=== PATIENT | female | born 1990 | race Caucasian/White ===

== ENCOUNTER 2017-04-24 14:56 | Emergency (ER) | payer MEDICAID ==
[~2017-04-24] VITALS: Ht 170.2 cm; Wt 51.7 kg
[~2017-04-24 14:56] MED LIST: ATIVAN0.5 MG PO; BROMFED DM COU118 ML PO; FLONASE 50 MCG16 GM; MEDROL 4MG. DOSE4 MG PO; NAPROSYN500 M1 PO; VISTARIL50 MG PO; ZITHROMAX Z PA250 MG PO
[2017-04-24 15:41] VITALS: BP 113/75
--- OUTSIDE RECORDS SUMMARY | 2017-04-27 16:37 | External Medical Summary Rpt ---
Author Author , JUSTINE Pruitt JUSTINE Address Unknown Phone [email or web address] Team Providers Care Automobile Body Repair Chief Name Role Phone [facility] Unavailable Unavailable & INTER, [facility] CAMP ALL, CAMP ALL Unavailable Unavailable LINTON JOSE LUIS, LINTON JOSE LUIS Unavailable Unavailable DEPA RAY, DEPA RAY Unavailable Unavailable DEPA RAY, DEPA RAY Unavailable Unavailable JR NAHEED SALMON, Unavailable Unavailable JR NAHEED SALMON BHARATH, CONI Unavailable Unavailable BHARATH [facility] Unavailable Unavailable HOSPITA, [facility] Unavailable Unavailable INC, [facility] XIMENA GREER Unavailable Unavailable XIMENA FLORES Unavailable Unavailable VERONICA [facility], Unavailable Unavailable [facility] Unavailable Unavailable IMAGING [facility], [facility] BARFIELD PAULINA, BARFIELD Unavailable Unavailable PAULINA [facility] Un[facility], [facility] O'OSWALDOBENNY MARIE O'OSWALDO Unavailable Unavailable FRANK Ian'OSWALDOBENNY MARIE O'OSWALDO Unavailable Unavailable FRANK [facility] Unavailable [facility] JOSE LUIS LINTON MD Unavailable Unavailable CONSULTING SERV, JOSE LUIS LINTON MD CONSULTING SERV [facility], Unavailable Unavailable PLL[facility], [facility], Unavailable Unavailable [facility] RENUSCH VERONICA, RENUSCH Unavailable Unavailable VERONICA [facility] Unavailable Unavailable [place], [facility] Unavailable Unavailable CENTER, [facility] SOKAN BAB, SOKAN BAB Unavailable Unavailable SOKAN BAB, SOKAN BAB Unavailable Unavailable LUKE RYA, LUKE Unavailable Unavailable RYA LUKE RYA, LUKE Unavailable Unavailable RYA LAZO RAY, LAZO Unavailable Unavailable RAY JOSH IQBAL, Unavailable Unavailable JOSH IQBAL Purpose Continuity of Care Document - 07-03-2013 through 2016 Problems Code Diagnosis DOS Provider Status R0602 SHORTNESS 03-26-2017 [facility] R079 CHEST PAIN 03-26-2017 [facility] [id number] MIGRAINE 03-23-2017 [facility] W/O AURA [facility] INTRACT W/O INC STAT MIGRAINOSUS Z720 TOBACCO USE 03-23-2017 [facility] M5412 RADICULOPAT 08-04-2016 [facility] HY CERVICAL [facility] REGION INC R203 HYPERESTHES 08-04-2016 [facility] IA [facility] [id number] UNS INJURY 08-04-2016 [facility] LEG INITIAL PLLC ENCOUNTER J40 BRONCHITIS 07-26-2016 [facility] NOT [facility] SPECIFIED INC ACUTE OR CHRONIC R42 DIZZINESS 07-26-2016 [facility] AND [facility] GIDDINESS INC M2550 PAIN IN 05-10-2016 [facility] UNSPECIFIED PHYSICIANS JOINT GROUP M542 CERVICALGIA 05-10-2016 [facility] M546 PAIN IN 05-10-2016 [facility] M549 DORSALGIA 05-10-2016 [facility] UNSPECIFIED PHYSICIANS GROUP R5383 OTHER 05-10-2016 [facility] FATIGUE PHYSICIANS GROUP J209 ACUTE 12-31-2015 [facility] UNSPECIF[facility] & INTER M545 LOW BACK 12-31-2015 [facility] PAIN [facility] & INTER Z3049 ENCOUNTER 12-03-2015 [facility] E OTHER CONTRACEPTI VES A599 TRICHOMONIA 07-20-2015 [facility] S[facility] UNSPECIFIED FOUNDATION N898 OTHER 07-20-2015 [facility] SPECIFIED SERV NONINFLAMMA FOUNDATION TORY DISORDERS VAGINA Y99113 ATYP SQ 07-20-2015 [facility] CELLS UNDET LLC SIGNIFICANC E CYTOL SMER CERV H24993 ENCOUNTER 07-20-2015 [facility] 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 GENERAL RTN W/ABNORMAL FIND I63398 ENCOUNTER 07-20-2015 [facility] EXAM SERV GENERAL RTN FOUNDATION W/O ABNORMAL FIND Z113 ENCOUNTER 07-20-2015 [facility] SCREEN LLC INFECTIONS SEXL MODE TRANSMISSN Z3202 ENCOUNTER 07-20-2015 [facility] TEST RESULT NEGATIVE 09190 UNSPECIFIED 05-19-2015 SOK[facility] VAGINITIS AND VULVOVAGINI TIS 6235 LEUKORRHEA 05-19-2015 [facility] NOT SPECIFIED INFECTIVE 4240 MITRAL 04-21-2015 JOSE LUIS WILBURN MD DISORDERS CONSULTING SERV 68713 OTHER 04-21-2015 [facility] DISEASES OF MEDICAL LUNG NOT IMAGING ASS ELSEWHERE CLASSIFIED 87000 SHORTNESS 04-21-2015 JOSE LUIS LINTON OF BREATH CONSULTING SERV 09355 CHEST PAIN 04-21-2015 [facility]NSPECIFIED [facility]ICAL [facility]ING [facility] 27417 PRECORDIAL 04-21-2015 JOSE LUIS LINTON PAIN CONSULTING SERV 650 NORMAL 02-24-2014 DEPA RAY DELIVERY 90433 RHESUS 02-24-2014 XIMENA MARTIN ISOIMMUNIZA TION AFFECT MGMT MOTH DELIV 05332 OTH 02-24-2014 XIMENA MARTIN UMBILICAL CORD COMPS DURING L&D DELIVERED 27175 FIRST-DEGRE 02-24-2014 [facility] PERINEAL [facility] WITH DELIVERY V220 SUPERVISION 02-24-2014 XIMENA MARTIN OF NORMAL FIRST V270 OUTCOME OF 02-24-2014 [facility] DELIVERY [facility] LIVEBORN V221 SUPERVISION 02-23-2014 XIMENA MARTIN OF OTHER NORMAL V072 NEED FOR 12-03-2013 [place] [facility] IMMUNOTHERA PY V2881 ENCOUNTER 10-01-2013 O'OSWALDO FRANK FOR ANATOMIC SURVEY 86707 ABDOMINAL 09-15-2013 XIMENA MARTIN PAIN, UNSPECIFIED SITE 591 HYDRONEPHRO 09-14-2013 LAZO RAY SIS 83203 UNSPECIFIED 09-14-2013 [facility] DISEASE 42301 OTHER 09-14-2013 LUKE RYA SPECIFED COMPLICATIO N ANTEPARTUM 52366 ABDOMINAL 09-14-2013 LUKE RYA PAIN RIGHT LOWER QUADRANT V2689 OTHER 07-03-2013 [facility] V7242 07-03-2013 [facility] OR TEST [facility] POSITIVE C[facility] RESULT Medications Na ND Rx Da Fi Fi Am Da Di Ph RX Ph St me C No te ll ll ou ys ag ar # ys at rm s nt no ma ic us Or Da si cy ia de te s n re d HY 00 06 07 [address] 18 -3 -2 .0 00 TE ti OX 50 0- 8- 00 01 ve YZ 61 20 20 19 AI IN 50 17 17 01 D E 1 45 PH PA AR M MA 50 CY MG #3 93 CA 8 P LO 00 05 06 60 30 00 RI Ac RA 59 -2 -2 .0 00 TE ti ZE 10 6- 3- 00 01 ve PA 24 20 20 18 AI M 00 17 17 56 D 0. 5 70 PH 5 AR MG MA CY TA BL #3 ET 93 8 LO 00 03 04 60 30 00 RI Ac RA 59 -1 -1 .0 00 TE ti ZE 10 6- 4- 00 01 ve PA 24 20 20 16 AI M 00 17 17 59 D 0. 5 07 PH 5 AR MG MA CY TA BL #3 ET 93 8 PE 45 02 03 60 1 00 RI Ac RM 80 -1 -1 .0 00 TE ti ET 20 2- 0- 00 01 ve HR 26 20 20 17 AI IN 93 17 17 07 D 7 80 PH 5% AR MA CR CY EA M #3 93 8 LO 00 01 02 60 30 00 RI Ac RA 59 -0 -0 .0 00 TE ti ZE 10 9- 3- 00 01 ve PA 24 20 20 16 AI M 00 17 17 59 D 0. 5 07 PH 5 AR MG MA CY TA BL #3 ET 93 8 HY 00 12 01 [address] 40 -1 -0 .0 00 TE ti OC 60 3- 9- 00 01 ve OD 12 20 20 16 AI ON 40 16 17 23 D -A 1 52 PH CE AR TA MA [place] CY NO PH #3 93 7. 8 5- 32 5 IB 53 12 01 30 7 00 RI Ac UP 74 -1 -0 .0 00 TE ti RO 60 3- 9- 00 01 ve FE 46 20 20 16 AI N 50 16 17 23 D 60 1 49 PH 0 AR MG MA CY TA BL #3 ET 93 8 Procedures Procedure DOS Code Location Performer Comment RADIOLOGI 82324 [facility] C EXAM [facility] CHEST 2 INC INC VIEWS FRONTAL&L ATERAL THERAPEUT 31238 [facility] IC 7 [facility] PROPHYLAC INC INC TIC/DX INJECTION SUBQ/IM THERAPEUT 88553 [facility] T[facility] IC 6 [facility] PROPHYLAC INC INC TIC/DX INJECTION SUBQ/IM THERAPEUT 71615 [facility] T[facility] IC 6 [facility] PROPHYLAC INC INC TIC/DX INJECTION SUBQ/IM CYANOCOBA 39106 [facility] TSE KEITH 6 [facility] VITAMIN INC INC B-12 RADEX 91169 [facility] SPINE 6 [facility] THORACIC INC INC 2 VIEWS SEDIMENTA 78050 [facility] TION RATE 6 [facility] RBC INC INC NON-AUTOM ATED ANTINUCLE 55345 [facility]SE AR 6 [facility] [place] [address] [facility] TSE THYROXINE 6 [facility] [place] [address] [facility] BLOOD/URI 6 [facility] C ACID INC INC RADEX 27650 [facility] SPINE 6 [facility] CERVICAL INC INC 4 OR 5 VIEWS RHEUMATOI 15373 [facility] D FACTOR 6 [facility] QUANTITAT INC INC MI HEMOGLOBI 32182 [facility] TSE N 6 [facility] GLYCOSYLA INC INC AMADA A1C BLOOD 72418 [facility] COUNT 6 [facility] COMPLETE INC INC AUTO&AUTO DIFRNTL WBC COMPREHEN 04653 [facility] SIVE 6 [facility] METABOLIC INC INC PANEL COLLECTIO 16819 [facility] N VENOUS 6 [facility] [place] [address] [facility] FOLIC 6 [facility] [place] [address] [facility] T[facility] THYROID 6 [facility] STIMULATI INC INC NG HORMONE TSH INSJ 33983 SHUN BUEON NON-BIODE 6 MEDICAL [facility] GRADABLE SERV DRUG FOUNDATIO DELIVERY N IMPLANT ETONOGEST J7307 SHUN BUENO REL 6 MEDICAL [facility] CNTRACPT SERV IMPL SYS FOUNDATIO INCL IMPL N & SPL SMR PRIM 93431 SHUN BUENO SRC WET 5 MEDICAL VERONICA MOUNT SERV NFCT AGT FOUNDATIO N IADNA 47201 [facility] CHLAMYDIA 5 LLC LLC TRACHOMAT IS AMPLIFIED PROBE TQ IADNA 22872 [facility] HUMAN 5 LLC LLC PAPILLOMA VIRUS HIGH-RISK TYPES URINE 31324 [place] BUENO 5 MEDICAL VERONICA TEST SERV VISUAL FOUNDATIO COLOR N CMPRSN METHS CYTP 60632 [facility], CERVICAL/ 5 [facility] VAGINAL REQ INTERP PHYSICIAN CYTP C/V 17115 [facility], AUTO THIN 5 [facility] LYR PREPJ SCR MNL RESCR PHYS IADNA 45181 [facility] NEISSERIA 5 [facility] GONORRHOE AE AMPLIFIED PROBE TQ COLLECTIO 79774 [facility] TSE N VENOUS 5 [facility] BLOOD INC INC VENIPUNCT URE RADIOLOGI 78197 [facility] [place] [facility] ALL C EXAM 5 MEDICAL CHEST 2 IMAGING VIEWS ASS FRONTAL&L ATERAL C-REACTIV 19561 [facility] TSE E PROTEIN [address] [facility] INC INC ECHO 08432 JOSE LUIS LINTON LINTON JOSE LUIS TTHRC R-T 5 2D CONSULTIN W/WOM-MOD G SERV E COMPL SPEC&COLR D GONADOTRO 59586 [facility] TSE PIN [address] [facility] CHORIONIC INC INC QUALITATI VE SEDIMENTA 13943 [facility] TSE TION RATE [facility] RBC INC INC NON-AUTOM ATED ECG 67294 JOSE LUIS LINTON LINTON JOSE LUIS ROUTINE 5 ECG CONSULTIN W/LEAST G SERV 12 LDS W/I&R RADIOLOGI 05215 [place] CAMP ALL C EXAM 5 MEDICAL CHEST 2 IMAGING VIEWS ASS FRONTAL&L ATERAL VAGINAL 04450 XIMENA BUENO DELIVERY 4 VERONICA VERONICA ONLY W/POSTPAR PRAVEEN CARE NEURAXIAL 43952 DEPA RAY DEPA RAY LABOR 4 ANALG/ANE S PLND VAGINAL DELIVERY OTHER 7359 [facility] MANUALLY 4 N N ASSISTED [facility] DELIVERY HOSPITA HOSPITA MEDICAL 734 [facility] INDUCTION 4 N N OF LABOR [facility] RE[facility] 7569 [facility] OTHER 4 N N CURRENT [facility] LACERAT[facility] N INDUCTION 7301 [facility] LABOR 4 N N [facility] RUPTURE HOSPITA HOSPITA MEMBRANES DRUG SCR G0434 [facility] NOT 4 DIAGNOSTI DIAGNOSTI CHROMATOG CS CS RAPHIC; ANY NUMBER PT ENC CUL 38933 [facility] PRSMPTV 4 DIAGNOSTI DIAGNOSTI PTHGNC CS CS ORGANISM SCRN W/COLONY ESTIMJ CUL 78695 [facility] PRSMPTV 4 DIAGNOSTI DIAGNOSTI PTHGNC CS CS ORGANISM SCRN W/COLONY ESTIMJ THERAPEUT 04858 XIMENA BUENO IC 4 VERONICA VERONICA PROPHYLAC TIC/DX INJECTION SUBQ/IM INJECTION J2790 [place] RHO D IG 4 MEDICAL MEDICAL HUMAN SERV SERV FULL DOSE FOUNDATIO FOUNDATIO 300 MCG N N GLUCOSE 68160 [facility] POST 4 DIAGNOSTI DIAGNOSTI GLUCOSE CS CS DOSE COLLECTIO 98731 [facility] N VENOUS 4 DIAGNOSTI DIAGNOSTI BLOOD CS CS VENIPUNCT URE URNLS DIP 98592 XIMENA BUENO 4 VERONICA VERONICA STICK/TAB LET RGNT AUTO W/O MICROSCOP Y US PREG 89716 O'OSWALDO O'OSWALDO UTERUS 4 FRANK FRANK AFTER 1ST TRIMEST GESTATION URNLS DIP 69855 XIMENA BUENO 3 VERONICA VERONICA STICK/TAB LET [place] [address] [facility] INFUSION 3 N N HYDRATION [facility] INITIAL HOSPITA HOSPITA 31 MIN-[address] [place] [address] [facility] INFUSION 3 N N HYDRATION [facility] EACH [place] [address] [facility] ABDOMINAL 3 N N REAL COMMUNITY COMMUNITY TIME HOSPITA HOSPITA W/IMAGE LIMITED COMPREHEN 63512 [facility] SIVE 3 N N METABOLIC [facility] PANEL HOSPITA HOSPITA COLLECTIO 43184 [facility] N VENOUS 3 N N BLOOD [facility] VENIPUNCT HOSPITA HOSPITA URE URNLS DIP 88345 [facility] 3 N N STICK/TAB [facility] LET HOSPITA HOSPITA REAGENT AUTO MICROSCOP Y BLOOD 12319 [facility] COUNT 3 N N COMPLETE [facility] AUTO&AUTO HOSPITA HOSPITA DIFRNTL WBC INFUSION J7030 [facility] NORMAL 3 N N SALINE [facility] SOLUTION HOSPITA HOSPITA [address] [place] [address] [facility] LIPASE 3 N N [facility] HOSPITA HOSPITA GONADOTRO 00374 [facility] PIN 3 DIAGNOSTI DIAGNOSTI CHORIONIC CS CS QUANTITAT MI INHIBIN A 22848 [facility] 3 [place] [address] [facility] ESTRIOL 3 DIAGNOSTI DIAGNOSTI CS CS ALPHA-FET 57548 [facility] OPROTEIN 3 DIAGNOSTI DIAGNOSTI SERUM CS CS COLLECTIO 31194 [facility] N VENOUS 3 DIAGNOSTI DIAGNOSTI BLOOD CS CS VENIPUNCT URE URNLS DIP 48581 XIMENA BUENO 3 VERONICA VERONICA STICK/TAB LET RGNT AUTO W/O MICROSCOP Y URNLS DIP 30262 XIMENA BUENO 3 VERONICA VERONICA STICK/TAB LET RGNT AUTO W/O MICROSCOP Y URNLS DIP 89468 XIMENA BUENO 3 VERONICA VERONICA STICK/TAB LET RGNT AUTO W/O MICROSCOP Y US PREG 23022 XIMENA BUENO UTERUS 3 VERONICA MARTIN REAL TIME W/IMAGE DCMTN TRANSVAG URINE 50234 [facility] [address] [place] [address] VISUAL CENTER CENTER COLOR CMPRSN METHS Encounters Encounter Start End Date Code Location Performer Type Date [facility]OSPITAL [facility] T [facility] OUTPATI[facility] T OFFICE 34989 [facility] T VISIT 5 INC MINUTES [facility] 6 6 [facility] OUTPATIEN INC T EMERGENCY 60692 [facility] CONTRERAS 6 6 PHYSICIAN SALVADOR VAZ T VISIT MODERATE SEVERITY HOSPITAL [facility] - 6 6 [facility] OUTPATIEN INC T OFFICE 55111 [facility] CONI OUTPATIEN 6 6 PHYSICIAN BHARATH T NEW 20 S GROUP MINUTES HOSPITAL [facility] - 6 6 [facility] OUTPATIEN INC T OFFICE 74256 JAY JAY BARFIELD OUTPATIEN 6 6 PAULINA T NEW 30 PEDIATRIC MINUTES S & INTER OFFICE 15679 SHUN BUENO OUTPATIEN 6 6 MEDICAL VERONICA T VISIT SERV 10 FOUNDATIO MINUTES N PERIODIC 38336 SHUN BUENO PREVENTIV 5 5 MEDICAL VERONICA E MED EST SERV PATIENT FOUNDATIO 18-39 YRS N EMERGENCY 12339 SOKAN BAB SOKAN BAB 5 5 DEPARTMEN T VISIT MODERATE SEVERITY HOSPITAL [facility] - 5 5 [facility] OUTPATIEN INC T OFFICE 95460 JOSE LUIS LINTON LINTON JOSE LUIS OUTPATIEN 5 5 MD T 45 CONSULTIN MINUTES G SERV EMERGENCY 54330 VIKY SALMON, 5 5 JR NAHEED FARFAN DEPARTMEN T VISIT HIGH/URGE NT SEVERITY HOSPITAL [facility] 4 4 N INPATIENT COMMUNITY HOSPITA OFFICE 20066 XIMENA BUENO OUTPATIEN 4 4 VERONICA VERONICA T VISIT 15 MINUTES OFFICE 30609 XIMENA BUENO OUTPATIEN 4 4 VERONICA VERONICA T VISIT 15 MINUTES OFFICE 31486 XIMENA BUENO OUTPATIEN 4 4 VERONICA VERONICA T VISIT 15 MINUTES OFFICE 26591 JOSH JOSH OUTPATIEN 4 4 DIRECTIONAL SURVEY DRAFTER DIRECTIONAL SURVEY DRAFTER T VISIT 15 MINUTES OFFICE 13019 XIMENA BUENO OUTPATIEN 4 4 VERONICA VERONICA T VISIT 15 MINUTES OFFICE 12400 XIMENA BUENO OUTPATIEN 4 4 VERONICA VERONICA T VISIT 15 MINUTES OFFICE 77597 XIMENA BUENO OUTPATIEN 4 4 VERONICA VERONICA T VISIT 15 MINUTES OFFICE 30416 XIMENA MCGUIRENES OUTPATIEN 4 4 VERONICA VERONICA T VISIT 15 MINUTES OFFICE 41951 XIMENA BUENO OUTPATIEN 4 4 VERONICA VERONICA T VISIT 15 MINUTES OFFICE 53438 XIMENA BUENO OUTPATIEN 4 4 VERONICA VERONICA T VISIT 15 MINUTES OFFICE 98531 XIMENA BUENO OUTPATIEN 4 4 VERONICA VERONICA T VISIT 15 MINUTES OFFICE 43802 XIMENA BUENO OUTPATIEN 4 4 VERONICA VERONICA T VISIT 15 MINUTES OFFICE 28308 XIMENA BUENO OUTPATIEN 3 3 VERONICA VERONICA T VISIT [address] [facility] - 3 3 N OUTPATIEN COMMUNITY T HOSPITA EMERGENCY 72696 [facility] HIGH/URGE NT SEVERITY EMERGENCY 03472 [facility] DEPT 3 3 RYA RYA VISIT HIGH SEVERITY& THREAT FUN OFFICE 26682 XIMENA BUENO OUTPATIEN 3 3 VERONICA VERONICA T VISIT 15 MINUTES OFFICE 11537 XIMENA BUENO OUTPATIEN 3 3 VERONICA VERONICA T VISIT 15 MINUTES OFFICE 90198 XIMENA BUENO OUTPATIEN 3 3 VERONICA VERONICA T NEW 30 MINUTES OFFICE 49714 [facility] OUTPATIEN [address]
--- OUTSIDE RECORDS SUMMARY | 2017-04-27 16:37 | External Medical Summary Rpt ---
Author Author , JUSTINE Pruitt JUSTINE Address Unknown Phone [email or web address] Care Team Providers Care Wellness Trainer Name Role Phone [facility] Unavailable Unavailable & INTER, [facility], CAMP ALL Unavailable Unavailable LINTON JOSE LUIS, LINTON JOSE LUIS Unavailable Unavailable DEPA RAY, DEPA RAY Unavailable Unavailable DEPA RAY, DEPA RAY Unavailable Unavailable JR NAHEED SALMON, Unavailable Unavailable JR NAHEED SALMON BHARATH, CONI Unavailable Unavailable BHARATH [facility] Unavailable Unavailable HOSPITA, [facility] Unavailable Unavailable INC, [facility] XIMENA GREER Unavailable Unavailable XIMENA FLORES Unavailable Unavailable VERONICA [facility], Unavailable Unavailable [facility] Unavailable Unavailable [facility], [facility] BARFIELD PAULINA, BARFIELD Unavailable [...] DIAGNOSTICS RENUSCH VERONICA, RENUSCH Unavailable Unavailable VERONICA [facility] Unavailable Unavailable [place], [facility] Unavailable Unavailable [facility] SOKAN BAB, SOKAN BAB Unavailable Unavailable SOKAN [...] PAIN 03-26-2017 [facility]NSPECIFIED [facility] [id number] MIGRAINE 03-23-2017 [facility] W/O AURA [facility] INTRACT W/O INC STAT MIGRAINOSUS Z720 TOBACCO USE 03-23-2017 [facility] M5412 RADICULOPAT 08-04-2016 [facility] HY CERVICAL [facility] REGION INC R203 HYPERESTHES 08-04-2016 [facility] IA [facility] INC [id number] UNS INJURY 08-04-2016 [facility] RT [facility]OWER [facility], LEG INITIAL PLLC ENCOUNTER J40 BRONCHITIS 07-26-2016 [facility] NOT [facility] SPECIFIED INC ACUTE OR CHRONIC R42 DIZZINESS 07-26-2016 [facility] AND [facility] GIDDINESS INC M2550 PAIN IN 05-10-2016 [facility] UNSPECIFIED PHYSICIANS JOINT GROUP M542 CERVICALGIA 05-10-2016 [facility] M546 PAIN IN 05-10-2016 [facility] M549 DORSALGIA 05-10-2016 [facility] UNSPECIFIED PHYSICIANS GROUP R5383 OTHER 05-10-2016 [facility] FATIGUE PHYSICIANS GROUP J209 ACUTE 12-31-2015 [facility] UNSPECIFIED & INTER M545 LOW BACK 12-31-2015 [facility] PAIN [facility]ICS & INTER Z3049 ENCOUNTER 12-03-2015 [place] [facility] SUR[facility] E OTHER CONTRACEPTI VES A599 TRICHOMONIA 07-20-2015 [place] [facility] S[facility] UNSPECIFIED [facility]ATION N898 OTHER 07-20-2015 [place] [facility] SPECIF[place] SERV NONINFLAMMA [facility]OUNDATION TORY DISORDERS VAGINA W94776 ATYP SQ 07-20-2015 [facility] CELLS UNDET LLC SIGNIFICANC E CYTOL SMER CERV C85830 ENCOUNTER 07-20-2015 [facility], ASSISTANT ADMINISTRATOR EXAM LLC GENERAL RTN W/ABNORMAL FIND A07459 ENCOUNTER 07-20-2015 [place] [facility] ASSISTANT ADMINISTRATOR EXAM SERV GENERAL RTN FOUNDATION W/O ABNORMAL FIND Z113 ENCOUNTER 07-20-2015 [facility], SCREEN LLC INFECTIONS SEXL MODE TRANSMISSN Z3202 ENCOUNTER 07-20-2015 [place] [facility] TEST RESULT NEGATIVE 21973 UNSPECIFIED 05-19-2015 SO[facility] VAGINITIS AND VULVOVAGINI TIS 6235 LEUKORRHEA 05-19-2015 [facility] NOT SPECIFIED INFECTIVE 4240 MITRAL 04-21-2015 JOSE LUIS WILBURN MD DISORDERS CONSULTING SERV 42208 OTHER 04-21-2015 [facility] DISEASES OF MEDICAL LUNG NOT IMAGING ASS ELSEWHERE CLASSIFIED 81490 SHORTNESS 04-21-2015 JOSE LUIS LINTON OF BREATH CONSULTING SERV 00737 CHEST PAIN 04-21-2015 [facility] UNSPECIFIED [facility]ING [facility] 18023 PRECORDIAL 04-21-2015 JOSE LUIS LINTON PAIN CONSULTING SERV 650 NORMAL 02-24-2014 DEPA RAY DELIVERY 32474 RHESUS 02-24-2014 XIMENA MARTIN ISOIMMUNIZA TION AFFECT MGMT MOTH DELIV 23136 OTH 02-24-2014 X[facility] MARTIN UMBILICAL CORD COMPS DURING L&D DELIVERED 29805 FIRST-DEGRE 02-24-2014 [facility] LAC[facility]ATION HOSPITA WITH DELIVERY V220 SUPERVISION 02-24-2014 XIMENA MARTIN OF NORMAL FIRST V270 OUTCOME OF 02-24-2014 [facility]IVERY [facility] SINGLE HOSPITA LIVEBORN V221 SUPERVISION 02-23-2014 XIMENA MARTIN OF OTHER NORMAL V072 NEED FOR 12-03-2013 [place] [facility] PROPHYLACTI SERV C [facility] IMMUNOTHERA PY V2881 ENCOUNTER 10-01-2013 O'OSWALDO FRANK FOR ANATOMIC SURVEY 65198 ABDOMINAL 09-15-2013 XIMENA MARTIN PAIN, UNSPECIFIED SITE 591 HYDRONEPHRO 09-14-2013 LAZO RAY SIS 72693 UNSPECIFIED 09-14-2013 [facility]TE[facility] RENAL HOSPITA DISEASE 60295 OTHER 09-14-2013 LUKE RYA SPECIFED COMPLICATIO N ANTEPARTUM 90645 ABDOMINAL 09-14-2013 LUKE RYA PAIN RIGHT LOWER QUADRANT V2689 OTHER 07-03-2013 [facility] V7242 07-03-2013 [facility] OR TEST [facility] POS[facility]IVE [facility] RESULT Medications Na ND Rx [...] 1 52 PH CE AR TA MA WV CY NO PH #3 [phone] 7. 8 [...] Procedure DOS Code Location Performer Comment RADIOLOGI 11337 [facility] C EXAM 7 [facility] CHEST 2 INC INC VIEWS FRONTAL&L ATERAL THERAPEUT 94212 [facility] IC 7 [facility] PROPHYLAC INC INC TIC/DX INJECTION SUBQ/IM THERAPEUT 03558 [facility] T[facility] IC 6 [facility] PROPHYLAC INC INC TIC/DX INJECTION SUBQ/IM THERAPEUT 01839 [facility] T[facility] IC 6 [facility] PROPHYLAC INC INC TIC/DX INJECTION SUBQ/IM CYANOCOBA 01319 [facility] TSE KEITH 6 [facility] VITAMIN INC INC B-12 RADEX 27178 [facility] SPINE 6 [facility] THORACIC INC INC 2 VIEWS SEDIMENTA 41512 [facility] TION RATE 6 [facility] RBC INC INC NON-AUTOM ATED ANTINUCLE 77684 [facility] AR 6 [facility] [place] [address] [facility] TSE THYROXINE 6 [facility] [place] [address] [facility] BLOOD/URI 6 [facility] C ACID INC INC RADEX 11434 [facility] T[facility] SPINE 6 [facility] CERVICAL INC INC 4 OR 5 VIEWS RHEUMATOI 15762 [facility] D FACTOR 6 [facility] QUANTITAT INC INC MI HEMOGLOBI 13044 [facility] TSE N 6 [facility] GLYCOSYLA INC INC AMADA A1C BLOOD 16690 [facility] COUNT 6 [facility] COMPLETE INC INC AUTO&AUTO DIFRNTL WBC COMPREHEN 17146 [facility] SIVE 6 [facility] METABOLIC INC INC PANEL COLLECTIO 09067 [facility] N VENOUS 6 [facility] [place] [address] [facility] TSE FOLIC 6 [facility] [place] [address] [facility] THYROID 6 [facility] STIMULATI INC INC NG HORMONE TSH INSJ 28474 SHUN BUENO NON-BIODE 6 MEDICAL VERONICA GRADABLE SERV DRUG FOUNDATIO DELIVERY N IMPLANT ETONOGEST J7307 SHUN BUENO REL 6 MEDICAL VERONICA CNTRACPT SERV IMPL SYS FOUNDATIO INCL IMPL N & SPL SMR PRIM 79864 SHUN BUENO SRC WET 5 MEDICAL VERONICA MOUNT SERV NFCT AGT FOUNDATIO N IADNA 95375 [facility] CHLAMYD[facility] LLC TRACHOMAT IS AMPLIFIED PROBE TQ IADNA 42649 [facility] HUMAN [facility] LLC PAPILLOMA VIRUS HIGH-RISK TYPES URINE 02423 [place] BUENO 5 MEDICAL VERONICA TEST SERV VISUAL FOUNDATIO COLOR N CMPRSN METHS CYTP 24346 [facility], CERVICAL/ 5 [facility] VAGINAL REQ INTERP PHYSICIAN CYTP C/V 56582 [facility], AUTO THIN 5 [facility] LYR PREPJ SCR MNL RESCR PHYS IADNA 05207 [facility], [facility], NEISSERIA 5 [facility] GONORRHOE AE AMPLIFIED PROBE TQ COLLECTIO 36568 [facility] TSE N VENOUS 5 [facility] BLOOD INC INC VENIPUNCT URE RADIOLOGI 61460 [facility] EXAM 5 MEDICAL CHEST 2 IMAGING VIEWS ASS FRONTAL&L ATERAL C-REACTIV 55674 [facility] TSE E PROTEIN 5 [facility] HOSP INC INC ECHO 62078 JOSE LUIS LINTON LINTON JOSE LUIS TTHRC R-T 5 2D CONSULTIN W/WOM-MOD G SERV E COMPL SPEC&COLR D GONADOTRO 37862 [facility] TSE PIN 5 [facility] HOSP CHORIONIC INC INC QUALITATI VE SEDIMENTA 82845 [facility] TSE TION RATE 5 [facility] HOS[facility] RBC INC INC NON-AUTOM ATED ECG 88166 JOSE LUIS LINTON LINTON JOSE LUIS ROUTINE 5 ECG CONSULTIN W/LEAST G SERV 12 LDS W/I&R RADIOLOGI 12217 [facility] EXAM 5 MEDICAL CHEST 2 IMAGING VIEWS ASS FRONTAL&L ATERAL VAGINAL 33949 XIMENA BUENO DELIVERY 4 VERONICA VERONICA ONLY W/POSTPAR PRAVEEN CARE NEURAXIAL 01334 DEPA RAY DEPA RAY LABOR 4 ANALG/ANE S PLND VAGINAL DELIVERY OTHER 7359 [facility] MANUALLY 4 N N ASSISTED [facility] DELIVERY HOSPITA HOSPITA MEDICAL 734 [facility] INDUCTION 4 N N OF LABOR [facility] RE[facility] 7569 [facility] OTHER 4 N N CURRENT [facility] HOSPITA LACERATIO N INDUCTION 7301 [facility] LABOR 4 N N [facility] HOSPITA HOSPITA MEMBRANES DRUG SCR G0434 [facility] NOT 4 DIAGNOSTI DIAGNOSTI CHROMATOG CS CS RAPHIC; ANY NUMBER PT ENC CUL 42974 [facility] QUEST PRSMPTV 4 DIAGNOSTI DIAGNOSTI PTHGNC CS CS ORGANISM SCRN W/COLONY ESTIMJ CUL 05347 [facility]ST PRSMPTV 4 DIAGNOSTI DIAGNOSTI PTHGNC CS CS ORGANISM SCRN W/COLONY ESTIMJ THERAPEUT 64059 XIMENA BUENO IC 4 VERONICA VERONICA PROPHYLAC TIC/DX INJECTION SUBQ/IM INJECTION J2790 [place] RHO D IG 4 MEDICAL MEDICAL HUMAN SERV SERV FULL DOSE FOUNDATIO FOUNDATIO 300 MCG N N GLUCOSE 05257 [facility] POST 4 DIAGNOSTI DIAGNOSTI GLUCOSE CS CS DOSE COLLECTIO 19048 [facility]ST N VENOUS 4 DIAGNOSTI DIAGNOSTI BLOOD CS CS VENIPUNCT URE URNLS DIP 86341 XIMENA BUENO 4 VERONICA VERONICA STICK/TAB LET RGNT AUTO W/O MICROSCOP Y US PREG 09987 O'OSWALDO O'OSWALDO UTERUS 4 FRANK FRANK AFTER 1ST TRIMEST GESTATION URNLS DIP 49244 XIMENA BUENO 3 VERONICA VERONICA STICK/TAB LET RG[place] W/[place] [address] [facility] INFUSION 3 N N HYDRATION [facility] INITIAL HOSPITA HOSPITA 31 MIN-[address] [place] [address] [facility] INFUSION 3 N N HYDRATION [facility] EACH [place] [address] [facility] ABDOMINAL 3 N N REAL COMMUNITY COMMUNITY TIME HOSPITA HOSPITA W/IMAGE LIMITED COMPREHEN 02996 [facility] SIVE 3 N N METABOLIC COMM[facility]ITY [facility] PANEL HOSPITA HOSPITA COLLECTIO 32683 [facility] N VENOUS 3 N N BLOOD [facility] VENIPUNCT HOSPITA HOSPITA URE URNLS DIP 95075 [facility] 3 N N STICK/TAB [facility]ITY [facility] LET HOSPITA HOSPITA REAGENT AUTO MICROSCOP Y BLOOD 19510 [facility] COUNT 3 N N COMPLETE [facility] AUTO&AUTO HOSPITA HOSPITA DIFRNTL WBC INFUSION J7030 [facility] NORMAL 3 N N SALINE [facility] SOLUTION HOSPITA HOSPITA [address] [place] [address] [facility] LIPASE 3 N N [facility] HOSPITA HOSPITA GONADOTRO 41678 [facility] PIN 3 DIAGNOSTI DIAGNOSTI CHORIONIC [place] [address] [facility] QUEST 3 [place] [address] [facility] ESTRIOL 3 DIAGNOSTI DIAGNOSTI CS CS ALPHA-FET 21928 [facility] OPROTEIN 3 DIAGNOSTI DIAGNOSTI SERUM CS CS COLLECTIO 95395 [facility] N VENOUS 3 DIAGNOSTI DIAGNOSTI BLOOD CS CS VENIPUNCT URE URNLS DIP 82133 XIMENA BUENO 3 VERONICA VERONICA STICK/TAB LET RGNT AUTO W/O MICROSCOP Y URNLS DIP 14076 XIMENA BUENO 3 VERONICA VERONICA STICK/TAB LET RGNT AUTO W/O MICROSCOP Y URNLS DIP 55809 XIMENA BUENO 3 VERONICA VERONICA STICK/TAB LET RGNT AUTO W/O MICROSCOP Y US PREG 26415 XIMENA BUENO UTERUS 3 VERONICA MARTIN REAL TIME W/IMAGE DCMTN TRANSVAG URINE 04306 [facility] [address] [place] [address] VISUAL CENTER CENTER COLOR CMPRSN METHS Encounters Encounter Start End Date Code Location Performer Type Date HOSPITAL [facility] T [facility] OUTPATIEN INC T OFFICE 27782 [facility] 7 [facility] T VISIT 5 INC MINUTES [facility]OS[facility] - 6 6 [facility] OUTPATIEN INC T EMERGENCY 57421 [facility] CONTRERAS 6 6 PHYSICIAN SALVADOR VAZ T VISIT MODERATE SEVERITY HOSPITAL [facility] - 6 6 [facility] OUTPATIEN INC T OFFICE 01022 [facility] CONI OUTPATIEN 6 6 PHYSICIAN BHARATH T NEW 20 S GROUP MINUTES HOSPITAL [facility] - 6 6 [facility] OUTPATIEN INC T OFFICE 13779 [facility] OUTPATIEN 6 6 PAULINA T NEW 30 PEDIATRIC MINUTES S & INTER OFFICE 95478 SHUN BUENO OUTPATIEN 6 6 MEDICAL VERONICA T VISIT SERV 10 FOUNDATIO MINUTES N PERIODIC 94859 SHUN BUENO PREVENTIV 5 5 MEDICAL VERONICA E MED EST SERV PATIENT FOUNDATIO 18-39 YRS N EMERGENCY 85856 SOKAN BAB SOKAN BAB 5 5 DEPARTMEN T VISIT MODERATE SEVERITY HOSPITAL [facility] - 5 5 [facility] OUTPATIEN INC T OFFICE 78435 JOSE LUIS LINTON LINTON JOSE LUIS OUTPATIEN 5 5 MD T 45 CONSULTIN MINUTES G SERV EMERGENCY 09251 VIKY SALMON, 5 5 JR NAHEED FARFAN DEPARTMEN T VISIT HIGH/URGE NT SEVERITY [facility] 4 4 N INPATIENT COMMUNITY HOSPITA OFFICE 73042 XIMENA BUENO OUTPATIEN 4 4 VERONICA VERONICA T VISIT 15 MINUTES OFFICE 91548 XIMENA BUENO OUTPATIEN 4 4 VERONICA VERONICA T VISIT 15 MINUTES OFFICE 47104 XIMENA BUENO OUTPATIEN 4 4 VERONICA VERONICA T VISIT 15 MINUTES OFFICE 65643 [facility] OUTPATIEN 4 4 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 T VISIT 15 MINUTES OFFICE 85940 XIMENA BUENO OUTPATIEN 4 4 VERONICA VERONICA T VISIT 15 MINUTES OFFICE 57934 XIMENA BUENO OUTPATIEN 4 4 VERONICA VERONICA T VISIT 15 MINUTES OFFICE 81158 XIMENA BUENO OUTPATIEN 4 4 VERONICA VERONICA T VISIT 15 MINUTES OFFICE 92586 XIMENA MCGUIRENES OUTPATIEN 4 4 VERONICA VERONICA T VISIT 15 MINUTES OFFICE 38884 XIMENA BUENO OUTPATIEN 4 4 VERONICA VERONICA T VISIT 15 MINUTES OFFICE 88087 XIMENA BUENO OUTPATIEN 4 4 VERONICA VERONICA T VISIT 15 MINUTES OFFICE 64016 XIMENA BUENO OUTPATIEN 4 4 VERONICA VERONICA T VISIT 15 MINUTES OFFICE 89801 XIMENA BUENO OUTPATIEN 4 4 VERONICA VERONICA T VISIT 15 MINUTES OFFICE 20798 XIMENA BUENO OUTPATIEN 3 3 VERONICA VERONICA T VISIT 15 MINUTES [facility] - 3 3 N OUTPATIEN COMMUNITY T HOSPITA EMERGENCY 15824 [facility] HIGH/URGE NT SEVERITY EMERGENCY 82415 TI LUKE DEPT 3 3 RYA RYA VISIT HIGH SEVERITY& THREAT FUN OFFICE 65666 XIMENA BUENO OUTPATIEN 3 3 VERONICA VERONICA T VISIT 15 MINUTES OFFICE 67467 XIMENA BUENO OUTPATIEN 3 3 VERONICA VERONICA T VISIT 15 MINUTES OFFICE 80639 XIMENA BUENO OUTPATIEN 3 3 VERONICA VERONICA T NEW 30 MINUTES OFFICE 99241 [facility] OUTPATIEN [address]
--- OUTSIDE RECORDS SUMMARY | 2017-04-27 16:38 | External Medical Summary Rpt ---
Author Author , JUSTINE FLETCHER Address Unknown Phone [email or web address] Care Team Providers Care Car Customizer Name Role Phone [facility] Unavailable Unavailable & INTER, [facility] CAMP ALL, CAMP ALL Unavailable Unavailable LINTON JOSE LUIS, LINTON JOSE LUIS Unavailable Unavailable DEPA RAY, DEPA RAY Unavailable Unavailable DEPA RAY, DEPA RAY Unavailable Unavailable JR NAHEED SALMON, Unavailable Unavailable JR MARICEL SALMONZ CONI BHARATH, CONI Unavailable Unavailable BHARATH [facility] Unavailable Unavailable HOSPITA, [facility] Un[facility] Unavailable INC, [facility] XIMENA GREER Unavailable Unavailable XIMENA FLORES Unavailable Unavailable VERONICA [facility], Unavailable Unavailable [facility] Unavailable Unavailable IM[facility]ING [facility], [facility] BRAFIELD PAULINA, BARFIELD Unavailable Unavailable PAULINA [facility] Un[facility], [facility] O'OSWALDO FRANK, O'OSWALDO Unavailable Unavailable FRANK O'OSWALDOBENNY MARIE O'OSWALDO Unavailable Unavailable FRANK [facility] Unavailable [facility] JOSE LUIS LINTON MD Unavailable Unavailable CONSULTING SERVJOSE LUIS MD CONSULTING SERV [facility], Unavailable Unavailable PLL[facility], [facility], Unavailable Unavailable [facility] RENUSCH VERONICA, RENUSCH Unavailable Unavailable VERONICA [facility] Unavailable Unavailable SWE[facility], [facility] Unavailable Unavailable CENTER, [facility] SOKAN BAB, SOKAN BAB Unavailable Unavailable SOKAN BAB, SOKAN BAB Unavailable Unavailable LUKE RYA, LUKE Unavailable Unavailable RYA LUKE RYA, LUKE Unavailable Unavailable RYA LAZO RAY, LAZO Unavailable Unavailable RAY LAZO RAY, LAZO Unavailable Unavailable RAY JOSH IQBAL, Unavailable Unavailable JOSH IQBAL Purpose Continuity of Care Document - 07-03-2013 through 2016 Problems Code Diagnosis DOS Provider Status R0602 SHORTNESS 03-26-2017 [facility] R079 CHEST PAIN 03-26-2017 [facility] R98777 MIGRAINE 03-23-2017 [facility] INTRACT W/O INC STAT MIGRAINOSUS Z720 TOBACCO USE 03-23-2017 [facility] M5412 RADICULOPAT 08-04-2016 [facility] CERVICAL [facility] REGION INC R203 HYPERESTHES 08-04-2016 [facility] [id number] UNS INJURY 08-04-2016 [facility] LEG INITIAL PLLC ENCOUNTER J40 BRONCHITIS 07-26-2016 [facility] NOT [facility] SPECIFIED INC ACUTE OR CHRONIC R42 DIZZINESS 07-26-2016 [facility] AND [facility] GIDDINESS INC M2550 PAIN IN 05-10-2016 [facility] UNSPECIFIED [facility]YSICIANS JOINT GROUP M542 CERVICALGIA 05-10-2016 [facility] M546 PAIN IN 05-10-2016 [facility] M549 DORSALGIA 05-10-2016 [facility] UNSPECIFIED PHYSICIANS GROUP R5383 OTHER 05-10-2016 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 OPERATOR EXAM LLC GENERAL RTN W/ABNORMAL FIND B91364 ENCOUNTER 07-20-2015 [facility] TELEVISION [facility] OPERATOR EXAM SERV GENERAL RTN FOUNDATION W/O ABNORMAL FIND Z113 ENCOUNTER 07-20-2015 [facility], SCREEN LLC INFECTIONS SEXL MODE TRANSMISSN Z3202 ENCOUNTER 07-20-2015 [facility] FOR Smart [facility] TEST RESULT NEGATIVE 31147 UNSPECIFIED 05-19-2015 SOK[facility] BAB VAGINITIS AND VULVOVAGINI TIS 6235 LEUKORRHEA 05-19-2015 [facility] NOT SPECIFIED INFECTIVE 4240 MITRAL 04-21-2015 JOSE LUIS WILBURN MD DISORDERS CONSULTING SERV 24331 OTHER 04-21-2015 [place] [facility] MED[facility] LUNG NOT IMAGING ASS ELSEWHERE CLASSIFIED 14498 SHORTNESS 04-21-2015 JOSE LUIS LINTON OF BREATH CONSULTING SERV 75284 CHEST PAIN 04-21-2015 [facility] 63350 PRECORDIAL 04-21-2015 JOSE LUIS LINTON PAIN CONSULTING SERV 650 NORMAL 02-24-2014 DEPA RAY DELIVERY 02874 RHESUS 02-24-2014 XIMENA MARTIN ISOIMMUNIZA TION AFFECT MGMT MOTH DELIV 32549 OTH 02-24-2014 XIME[facility] MARTIN UMBILICAL CORD COMPS DURING L&D DELIVERED 75096 FIRST-DEGRE 02-24-2014 [facility] PERINEAL [facility] LAC[facility]OSP[facility] WITH DELIVERY V220 SUPERVISION 02-24-2014 XIMENA MARTIN OF NORMAL FIRST V270 OUTCOME OF 02-24-2014 [facility] DELIVERY [facility] SINGLE HOSPITA LIVEBORN V221 SUPERVISION 02-23-2014 XIMENA MARTIN OF OTHER NORMAL V072 NEED FOR 12-03-2013 [facility] IMMUNOTHERA PY V2881 ENCOUNTER 10-01-2013 O'OSWALDO FRANK FOR ANATOMIC SURVEY 27290 ABDOMINAL 09-15-2013 XIMENA MARTIN PAIN, UNSPECIFIED SITE 591 HYDRONEPHRO 09-14-2013 LAZO RAY SIS 73967 UNSPECIFIED 09-14-2013 [facility] DISEASE 52870 OTHER 09-14-2013 LUKE RYA SPECIFED COMPLICATIO N ANTEPARTUM 25450 ABDOMINAL 09-14-2013 LUKE RYA PAIN RIGHT LOWER QUADRANT V2689 OTHER 07-03-2013 [facility] V7242 07-03-2013 [facility] OR [facility] RESULT Medications Na ND Rx [...] CY TA BL #3 ET 93 8 IB 53 12 01 30 7 00 [...] 1 52 PH CE AR TA MA MT CY NO PH #3 93 7. 8 5- 32 5 Procedures Procedure DOS Code Location Performer Comment RADIOLOGI 92273 [facility] C EXAM [facility] CHEST 2 INC INC VIEWS FRONTAL&L ATERAL THERAPEUT 33456 [facility] IC 7 [facility] PROPHYLAC INC INC TIC/DX INJECTION SUBQ/IM THERAPEUT 43569 [facility] IC 6 [facility] PROPHYLAC INC INC TIC/DX INJECTION SUBQ/IM THERAPEUT 76115 [facility] IC 6 [facility] PROPHYLAC INC INC TIC/DX INJECTION SUBQ/IM COMPREHEN 45620 [facility] SIVE 6 [facility] METABOLIC INC INC PANEL COLLECTIO 46183 [facility] N VENOUS 6 [facility] BLOOD INC INC VENIPUNCT URE RADEX 12433 [facility] SPINE 6 [facility] CERVICAL INC INC 4 OR 5 VIEWS HEMOGLOBI 00037 [facility] T[facility] N 6 [facility] GLYCOSYLA INC INC AMADA A1C RADEX 84147 [facility] SPINE 6 [facility] THORACIC INC [place] [address] [place] [address] [facility] FOLIC 6 [facility] [place] [address] [facility] THYROID 6 [facility] STIMULATI INC INC NG HORMONE TSH BLOOD 55544 [facility] COUNT 6 [facility] COMPLETE INC INC AUTO&AUTO DIFRNTL WBC RHEUMATOI 02492 [facility] D FACTOR 6 [facility]OS[facility] QUANTITAT INC INC MI CYANOCOBA 32073 [facility] KEITH 6 [facility] VITAMIN INC INC B-12 SEDIMENTA 26168 [facility] TION RATE 6 [facility] [place] [address] [facility] THYROXINE 6 [facility] [place] [address] [facility] BLOOD/URI 6 [facility] C ACID INC INC ANTINUCLE 18458 [facility] AR 6 [facility] ANTIBODIE INC INC S JEREMIAH ETONOGEST J7307 SHUN XIMENA REL 6 MEDICAL VERONICA CNTRACPT SERV IMPL SYS FOUNDATIO INCL IMPL N & SPL INSJ 56970 SHUN XIMENA NON-BIODE 6 MEDICAL VERONICA GRADABLE SERV DRUG FOUNDATIO DELIVERY N IMPLANT URINE 77487 SHUN BUENO 5 MEDICAL VERONICA TEST SERV VISUAL FOUNDATIO COLOR N CMPRSN METHS SMR PRIM 87961 SHUN BUENO SRC WET 5 MEDICAL VERONICA MOUNT SERV NFCT AGT FOUNDATIO N IADNA 65710 [facility] CHLAMYDIA 5 LLC LLC TRACHOMAT IS AMPLIFIED PROBE TQ IADNA 25236 [facility], [facility] HUMAN 5 LLC LLC PAPILLOMA VIRUS HIGH-RISK TYPES CYTP 10076 [facility], CERVICAL/ 5 [facility] VAGINAL REQ INTERP PHYSICIAN CYTP C/V 69151 [facility], AUTO THIN 5 [facility] LYR PREPJ SCR MNL RESCR PHYS IADNA 79603 [facility], NEISSERIA 5 [facility] GONORRHOE AE AMPLIFIED PROBE TQ C-REACTIV 65644 [facility] T[facility] E PROTEIN 5 [facility] INC INC ECHO 31085 JOSE LUIS LINTON LINTON JOSE LUIS TTHRC R-T 5 2D CONSULTIN W/WOM-MOD G SERV E COMPL SPEC&COLR D RADIOLOGI 01142 [facility] ALL C EXAM 5 MEDICAL CHEST 2 IMAGING VIEWS ASS FRONTAL&L ATERAL GONADOTRO 82212 [facility] T[facility] PIN 5 [facility] HOSP CHORIONIC INC INC QUALITATI VE ECG 28713 JOSE LUIS LINTON LINTON JOSE LUIS ROUTINE 5 MD ECG CONSULTIN W/LEAST G SERV 12 LDS W/I&R COLLECTIO 65870 [facility] N VENOUS 5 [facility] HOSP BLOOD INC INC VENIPUNCT URE SEDIMENTA 83620 [facility] TSE TION RATE 5 [facility] HOSP RBC INC INC NON-AUTOM ATED RADIOLOGI 84150 [facility] ALL C EXAM 5 MEDICAL CHEST 2 IMAGING VIEWS ASS FRONTAL&L ATERAL VAGINAL 69441 [facility] DELIVERY 4 VERONICA VERONICA ONLY W/POSTPAR PRAVEEN CARE NEURAXIAL 07537 DEPA RAY DEPA RAY LABOR 4 ANALG/ANE S PLND VAGINAL DELIVERY OTHER 7359 [facility] MANUALLY 4 N N ASSISTED [facility] DELIVERY HOSPITA HOSPITA MEDICAL 734 [facility] INDUCTION 4 N N OF LABOR [facility] HOSPITA HOSPITA REPAIR OF 7569 [facility] OTHER 4 N N CURRENT [facility] OBSTETRIC HOSPITA HOSPITA LACERATIO N INDUCTION 7301 [facility] LABOR 4 N N ARTIFICIA [facility] L RUPTURE HOSPITA HOSPITA MEMBRANES DRUG SCR G0434 [facility] NOT 4 DIAGNOSTI DIAGNOSTI CHROMATOG CS CS RAPHIC; ANY NUMBER PT ENC CUL 70264 [facility] PRSMPTV 4 DIAGNOSTI DIAGNOSTI PTHGNC CS CS ORGANISM SCRN W/COLONY ESTIMJ CUL 91370 [facility] PRSMPTV 4 DIAGNOSTI DIAGNOSTI PTHGNC CS CS ORGANISM SCRN W/COLONY ESTIMJ INJECTION J2790 [place] RHO D IG 4 MEDICAL MEDICAL HUMAN SERV SERV FULL DOSE FOUNDATIO FOUNDATIO 300 MCG N N THERAPEUT 12973 XIMENA BUENO IC 4 VERONICA VERONICA PROPHYLAC TIC/DX INJECTION SUBQ/IM COLLECTIO 85399 [facility] N VENOUS 4 DIAGNOSTI DIAGNOSTI BLOOD CS CS VENIPUNCT URE GLUCOSE 91981 [facility] POST 4 DIAGNOSTI DIAGNOSTI GLUCOSE CS CS DOSE URNLS DIP 52676 XIMENA BUENO 4 VERONICA VERONICA STICK/TAB LET RGNT AUTO W/O MICROSCOP Y US PREG 01910 O'OSWALDO O'OSWALDO UTERUS 4 FRANK FRANK AFTER 1ST TRIMEST GESTATION URNLS DIP 83387 XIMENA BUENO 3 VERONICA VERONICA STICK/TAB LET RGNT AUTO W/O MICROSCOP Y INFUSION J7030 [facility] NORMAL 3 N N SALINE [facility] SOLUTION HOSPITA HOSPITA [address] [place] [address] [facility] LIPASE 3 N N [facility] HOSPITA HOSPITA COMPREHEN 78648 [facility] SIVE 3 N N METABOLIC [facility] [place] [address] [facility] INFUSION 3 N N HYDRATION [facility] INITIAL HOSPITA HOSPITA 31 MIN-[address] [place] [address] [facility] INFUSION 3 N N HYDRATION [facility] EACH HOSPITA HOSPITA ADDITIONA L HOUR COLLECTIO 14686 [facility] N VENOUS 3 N N BLOOD [facility] VENIPUNCT HOSPITA HOSPITA URE BLOOD 82598 [facility] COUNT 3 N N COMPLETE COMMUNITY COMMUNITY AUTO&AUTO [place] [address] [place] [facility] ABDOMINAL 3 MOON REAL TIME W/IMAGE LIMITED URNLS DIP 82445 [facility] [place] 3 N N STICK/TAB COMMUNITY COMMUNITY LET HOSPITA HOSPITA [place] [address] [facility] ESTRIOL 3 DIAGNOSTI DIAGNOSTI CS CS COLLECTIO 33924 [facility] N VENOUS 3 DIAGNOSTI DIAGNOSTI BLOOD CS CS VENIPUNCT URE URNLS DIP 12400 XIMENA BUENO 3 VERONICA VERONICA STICK/TAB LET RGNT AUTO W/O MICROSCOP Y GONADOTRO 61353 [facility] PIN 3 DIAGNOSTI DIAGNOSTI CHORIONIC CS CS QUANTITAT MI ALPHA-FET 60528 [facility] OPROTEIN 3 DIAGNOSTI DIAGNOSTI SERUM CS CS INHIBIN A 09886 [facility] 3 DIAGNOSTI DIAGNOSTI CS CS URNLS DIP 43881 XIMENA BUENO 3 VERONICA VERONICA STICK/TAB LET RGNT AUTO W/O MICROSCOP Y URNLS DIP 18925 XIMENA BUENO 3 VERONICA VERONICA STICK/TAB LET RGNT AUTO W/O MICROSCOP Y US PREG 90552 XIMENA BUENO UTERUS 3 VERONICA VERONICA REAL TIME W/IMAGE DCMTN TRANSVAG URINE 23143 [facility] [address] [place] [address] CENTER CENTER COLOR CMPRSN METHS Encounters Encounter Start End Date Code Location Performer Type Date HOSPITAL [facility] 47753 [facility] T VISIT 5 INC MINUTES [facility]OSP[facility] 7 7 [facility] OUTPATIEN INC T EMERGENCY 18447 [facility] CONTRERAS 6 6 PHYSICIAN SALVADOR VAZ T VISIT MODERATE SEVERITY [facility]OSPITAL [facility] 6 6 [facility]EN [facility] T [facility] 6 6 [facility] OUTPATIEN INC T [facility]OSPITAL [facility] - 6 6 [facility] OUTPATIEN INC T OFFICE 62232 [facility] CONI OUTPATIEN 6 6 PHYSICIAN BHARATH T NEW 20 S GROUP MINUTES OFFICE 68860 JAY JAY BARFIELD OUTPATIEN 6 6 PAULINA T NEW 30 PEDIATRIC MINUTES S & INTER OFFICE 12191 SHUN BUENO OUTPATIEN 6 6 MEDICAL VERONICA T VISIT SERV 10 FOUNDATIO MINUTES N PERIODIC 93187 SUHN BUENO PREVENTIV 5 5 MEDICAL VERONICA E MED EST SERV PATIENT FOUNDATIO 18-39 YRS N EMERGENCY 30258 SOKAN BAB SOKAN BAB 5 5 DEPARTMEN T VISIT MODERATE SEVERITY HOSPITAL [facility] - 5 5 [facility] OUTPATIEN INC T OFFICE 79577 JOSE LUIS LINTON LINTON JOSE LUIS OUTPATIEN 5 5 MD Aguirre 45 CONSULTIN MINUTES G SERV EMERGENCY 26173 VIKY SALOMN, 5 5 JR NAHEED FARFAN DEPARTMEN T VISIT HIGH/URGE NT SEVERITY HOSPITAL [facility] - 4 4 N INPATIENT COMMUNITY HOSPITA OFFICE 00817 XIMENA BUENO OUTPATIEN 4 4 VERONICA VERONICA T VISIT 15 MINUTES OFFICE 28144 XIMENA BUENO OUTPATIEN 4 4 VERONICA VERONICA T VISIT 15 MINUTES OFFICE 37441 XIMENA BUENO OUTPATIEN 4 4 VERONICA VERONICA T VISIT 15 MINUTES OFFICE 91764 JOSH MORENO OUTPATIEN 4 4 STRIKE OUT MACHINE OPERATOR STRIKE OUT MACHINE OPERATOR T VISIT 15 MINUTES OFFICE 60009 XIMENA BUENO OUTPATIEN 4 4 VERONICA VERONICA T VISIT 15 MINUTES OFFICE 80737 XIMENA BUENO OUTPATIEN 4 4 VERONICA EVRONICA T VISIT 15 MINUTES OFFICE 02094 XIMENA BUENO OUTPATIEN 4 4 VERONICA VERONICA T VISIT 15 MINUTES OFFICE 89998 XIMENA BUENO OUTPATIEN 4 4 VERONICA VERONICA T VISIT 15 MINUTES OFFICE 21037 BUENO BUENO OUTPATIEN 4 4 VERONICA VERONICA T VISIT 15 MINUTES OFFICE 57171 XIMENA BUENO OUTPATIEN 4 4 VERONICA VERONICA T VISIT 15 MINUTES OFFICE 35299 XIMENA BUENO OUTPATIEN 4 4 VERONICA VERONICA T VISIT 15 MINUTES OFFICE 27981 XIMENA BUENO OUTPATIEN 4 4 VERONICA VERONICA T VISIT 15 MINUTES OFFICE 47424 XIMENA BUENO OUTPATIEN 3 3 VERONICA VERONICA T VISIT 15 MINUTES EMERGENCY 35089 LUKE LUKE DEPT 3 3 RYA RYA VISIT HIGH SEVERITY& THREAT [facility] - 3 3 N OUTPATIEN COMMUNITY T HOSPITA EMERGENCY 86166 [facility] 3 3 N DEPARTMEN COMMUNITY T VISIT HOSPITA HIGH/URGE NT SEVERITY OFFICE 27811 XIMENA BUENO OUTPATIEN 3 3 VERONICA VERONICA T VISIT 15 MINUTES OFFICE 10165 XIMENA BUENO OUTPATIEN 3 3 VERONICA VERONICA T VISIT 15 MINUTES OFFICE 69351 XIMENA BUENO OUTPATIEN 3 3 VERONICA VEORNICA T NEW 30 MINUTES OFFICE 55444 [facility] OUTPATIEN [address]
--- OUTSIDE RECORDS SUMMARY | 2017-04-27 16:38 | External Medical Summary Rpt ---
Author Author , JUSTINE FLETCHER Address Unknown Phone [email or web address] Care Team Providers Care Maintenance Analyst Name Role Phone [facility] Unavailable Unavailable & INTER, [facility] CAMP ALL, CAMP ALL Unavailable Unavailable LINTON JOSE LUIS, LINTON JOSE LUIS Unavailable Unavailable DEPA RAY, DEPA RAY Unavailable Unavailable DEPA RAY, DEPA RAY Unavailable Unavailable JR NAHEED SALMON, Unavailable Unavailable JR MARICEL SALMONZ CONI BHARATH, CONI Unavailable Unavailable BHARATH [facility] Unavailable Unavailable HOSPITA, [facility] Unavailable Unavailable INC, [facility] XIMENA GREER Unavailable Unavailable XIMENA FLORES Unavailable Unavailable VERONICA [facility], Unavailable Unavailable [facility] Unavailable Unavailable [facility], [facility] BARFIELD PAULINA, BARFIELD Unavailable [...] DIAGNOSTICS RENUSCH VERONICA, RENUSCH Unavailable Unavailable VERONICA [facility] Unavailable Unavailable [place], [facility] Unavailable Unavailable C[facility], [facility] SOKAN BAB, SOKAN BAB Unavailable [...] PAIN 03-26-2017 [facility] [id number] MIGRAINE 03-23-2017 [facility] W/O AURA [facility] INTRACT W/O INC STAT MIGRAINOSUS Z720 TOBACCO USE 03-23-2017 [facility] M5412 RADICULOPAT 08-04-2016 [facility] HY CERVICAL [facility] REGION INC R203 HYPERESTHES 08-04-2016 [facility] IA [facility] INC [id number] UNS INJURY 08-04-2016 [facility] RT LOWER [facility], LEG INITIAL PLLC ENCOUNTER J40 BRONCHITIS 07-26-2016 [facility] NOT [facility] SPECIFIED INC ACUTE OR CHRONIC R42 DIZZINESS 07-26-2016 [facility] AND [facility] GIDDINESS INC M2550 PAIN IN 05-10-2016 [facility] UNSPECIFIED PHYSICIANS JOINT GROUP M542 CERVICALGIA 05-10-2016 [facility] M546 PAIN IN 05-10-2016 [facility] M549 DORSALGIA 05-10-2016 [facility] UNSPECIFIED PHYSICIANS GROUP R5383 OTHER 05-10-2016 [facility] FATIGUE PHYSICIANS GROUP J209 ACUTE 12-31-2015 [facility] UNSPECIF[facility] & INTER M545 LOW BACK 12-31-2015 [facility] PAIN [facility] & INTER Z3049 ENCOUNTER 12-03-2015 [facility] SURVEILLANC [facility] E OTHER CONTRACEPTI VES A599 TRICHOMONIA 07-20-2015 [facility] SIS [facility] UNSPECIFIED FOUNDATION N898 OTHER 07-20-2015 [facility] SPECIFIED SERV NONINFLAMMA FOUNDATION TORY DISORDERS VAGINA R30329 ATYP SQ 07-20-2015 [facility] CELLS UNDET LLC SIGNIFICANC E CYTOL SMER CERV H26013 ENCOUNTER 07-20-2015 [facility] PRIMER POWDER BLENDER WET EXAM LLC GENERAL RTN W/ABNORMAL FIND C00866 ENCOUNTER 07-20-2015 [facility] PRIMER POWDER BLENDER WET EXAM SERV GENERAL RTN FOUNDATION W/O ABNORMAL FIND Z113 ENCOUNTER 07-20-2015 [facility], SCREEN LLC INFECTIONS SEXL MODE TRANSMISSN Z3202 ENCOUNTER 07-20-2015 [facility] FOR [facility] TEST RESULT NEGATIVE 33484 UNSPECIFIED 05-19-2015 SOKAN BAB VAGINITIS AND VULVOVAGINI TIS 6235 LEUKORRHEA 05-19-2015 SOKAN BAB NOT SPECIFIED INFECTIVE 4240 MITRAL 04-21-2015 JOSE LUIS WILBURN MD DISORDERS CONSULTING SERV 75737 OTHER 04-21-2015 [place] DISEASES OF MEDICAL LUNG NOT IMAGING ASS ELSEWHERE CLASSIFIED 26150 SHORTNESS 04-21-2015 JOSE LUIS LINTON OF BREATH CONSULTING SERV 11648 CHEST PAIN 04-21-2015 [facility]PEC[facility] 63229 PRECORDIAL 04-21-2015 JOSE LUIS LINTON PAIN CONSULTING SERV 650 NORMAL 02-24-2014 DEPA RAY DELIVERY 46175 RHESUS 02-24-2014 XIMENA MARTIN ISOIMMUNIZA TION AFFECT MGMT MOTH DELIV 95854 OTH 02-24-2014 X[facility] MARTIN UMBILICAL CORD COMPS DURING L&D DELIVERED 28747 FIRST-DEGRE 02-24-2014 [facility] PERINEAL [facility] WITH DELIVERY V220 SUPERVISION 02-24-2014 XIMENA MARTIN OF NORMAL FIRST V270 OUTCOME OF 02-24-2014 [place] DELIVERY [facility] LIVEBORN V221 SUPERVISION 02-23-2014 XIMENA MARTIN OF OTHER NORMAL V072 NEED FOR 12-03-2013 [place] [facility] PROPHYLACTI SERV C [facility] IMMUNOTHERA PY V2881 ENCOUNTER 10-01-2013 O'OSWALDO FRANK FOR ANATOMIC SURVEY 95130 ABDOMINAL 09-15-2013 XIMENA MARTIN PAIN, UNSPECIFIED SITE 591 HYDRONEPHRO 09-14-2013 LAZO RAY SIS 88479 UNSPECIFIED 09-14-2013 [place] [facility]TE[facility] DISEASE 66267 OTHER 09-14-2013 LUKE RYA SPECIFED COMPLICATIO N ANTEPARTUM 97756 ABDOMINAL 09-14-2013 LUKE RYA PAIN RIGHT LOWER QUADRANT V2689 OTHER 07-03-2013 [facility] V7242 07-03-2013 [facility] OR TEST HEALTH POSITIVE [facility]ENTER RESULT Medications [...] 1 [address] AR TA MA GA CY NO PH #[phone]. [phone] 5- 32 5 Procedures Procedure DOS Code Location Performer Comment RADIOLOGI 55146 [facility] C EXAM [facility] CHEST 2 INC INC VIEWS FRONTAL&L ATERAL THERAPEUT 29302 [facility] T[facility] IC 7 [facility] PROPHYLAC INC INC TIC/DX INJECTION SUBQ/IM THERAPEUT 49842 [facility] TSE IC 6 [facility] PROPHYLAC INC INC TIC/DX INJECTION SUBQ/IM THERAPEUT 00088 [facility] TSE IC 6 [facility] PROPHYLAC INC INC TIC/DX INJECTION SUBQ/IM COMPREHEN 63222 [facility] SIVE 6 [facility] METABOLIC INC INC PANEL COLLECTIO 09278 [facility] N VENOUS 6 [facility] BLOOD INC INC VENIPUNCT URE RADEX 80828 [facility] SPINE 6 [facility] CERVICAL INC INC 4 OR 5 VIEWS HEMOGLOBI 45493 [facility] T[facility] N 6 [facility] GLYCOSYLA INC INC AMADA A1C RADEX 86053 [facility] T[facility] SPINE 6 [facility] THORACIC INC [place] [address] [place] [address] [facility] FOLIC 6 [facility] [place] [address] [facility] THYROID 6 [facility] STIMULATI INC INC NG HORMONE TSH BLOOD 49264 [facility] COUNT 6 [facility] COMPLETE INC INC AUTO&AUTO DIFRNTL WBC RHEUMATOI 96606 [facility]SE D FACTOR 6 [facility] QUANTITAT INC INC MI CYANOCOBA 26769 [facility] KEITH 6 [facility] VITAMIN INC INC B-12 SEDIMENTA 48412 [facility] T[facility] TION RATE 6 [facility] [place] [address] [facility] TSE THYROXINE 6 [facility] [place] [address] [facility] BLOOD/URI 6 [facility] C ACID INC INC ANTINUCLE 51386 [facility] TSE AR 6 [facility] ANTIBODIE INC INC S JEREMIAH ETONOGEST J7307 SHUN XIMENA REL 6 MEDICAL VERONICA CNTRACPT SERV IMPL SYS FOUNDATIO INCL IMPL N & SPL INSJ 07653 SHUN XIMENA NON-BIODE 6 MEDICAL VERONICA GRADABLE SERV DRUG FOUNDATIO DELIVERY N IMPLANT URINE 10815 SHUN BUENO 5 MEDICAL VERONICA TEST SERV VISUAL FOUNDATIO COLOR N CMPRSN METHS SMR PRIM 76337 SHUN BUENO SRC WET 5 MEDICAL VERONICA MOUNT SERV NFCT AGT FOUNDATIO N IADNA 54497 [facility] TRACHOMAT IS AMPLIFIED PROBE TQ IADNA 11990 [facility], [facility]UM[facility] PAPILLOMA VIRUS HIGH-RISK TYPES CYTP 17518 [facility], CERVICAL/ 5 [facility] VAGINAL REQ INTERP PHYSICIAN CYTP C/V 47705 [facility], AUTO THIN 5 [facility] LYR PREPJ SCR MNL RESCR PHYS IADNA 68480 [facility], NEISSERIA 5 [facility] GONORRHOE AE AMPLIFIED PROBE TQ C-REACTIV 64271 [facility] TSE E PROTEIN 5 [facility] INC ECHO 99310 JOSE LUIS LINTON LINTON JOSE LUIS TTHRC R-T 5 2D CONSULTIN W/WOM-MOD G SERV E COMPL SPEC&COLR D RADIOLOGI 16759 [facility] ALL C EXAM 5 MEDICAL CHEST 2 IMAGING VIEWS ASS FRONTAL&L ATERAL GONADOTRO 77671 [facility] TSE PIN 5 [facility] HOSP CHORIONIC INC INC QUALITATI VE ECG 24373 JOSE LUIS L[place] JOSE LUIS ROUTINE 5 MD ECG CONSULTIN W/LEAST G SERV 12 LDS W/I&R COLLECTIO 50357 [facility] TSE N VENOUS 5 [facility] HOSP BLOOD INC INC VENIPUNCT URE SEDIMENTA 86537 [facility] TSE TION RATE 5 [facility] HOSP RBC INC INC NON-AUTOM ATED RADIOLOGI 77510 [facility] ALL C EXAM 5 MEDICAL CHEST 2 IMAGING VIEWS ASS FRONTAL&L ATERAL VAGINAL 47141 [facility] DELIVERY 4 VERONICA VERONICA ONLY W/POSTPAR PRAVEEN CARE NEURAXIAL 27397 DEPA RAY DEPA RAY LABOR 4 ANALG/ANE S PLND VAGINAL DELIVERY OTHER 7359 [facility] MANUALLY 4 N N ASSISTED [facility] DELIVERY HOSPITA HOSPITA MEDICAL 734 [facility] INDUCTION 4 N N OF LABOR [facility] HOSPITA HOSPITA REPAIR OF 7569 [facility] OTHER 4 N N CURRENT [facility] OBSTETRIC HOSPITA HOSPITA LACERATIO N INDUCTION 7301 [facility] LABOR 4 N N ARTIFICIA [facility] L RUPTURE HOSPITA HOSPITA MEMBRANES DRUG SCR G0434 [facility] NOT 4 DIAGNOSTI DIAGNOSTI CHROMATOG CS CS RAPHIC; ANY NUMBER PT ENC CUL 54440 [facility] PRSMPTV 4 DIAGNOSTI DIAGNOSTI PTHGNC CS CS ORGANISM SCRN W/COLONY ESTIMJ CUL 84729 [facility] PRSMPTV 4 DIAGNOSTI DIAGNOSTI PTHGNC CS CS ORGANISM SCRN W/COLONY ESTIMJ INJECTION J2790 [place] RHO D IG 4 MEDICAL MEDICAL HUMAN SERV SERV FULL DOSE FOUNDATIO FOUNDATIO 300 MCG N N THERAPEUT 49809 XIMENA BUENO IC 4 VERONICA VERONICA PROPHYLAC TIC/DX INJECTION SUBQ/IM COLLECTIO 32994 [facility] N VENOUS 4 DIAGNOSTI DIAGNOSTI BLOOD CS CS VENIPUNCT URE GLUCOSE 68925 [facility] POST 4 DIAGNOSTI DIAGNOSTI GLUCOSE CS CS DOSE URNLS DIP 22666 XIMENA BUENO 4 VERONICA VERONICA STICK/TAB LET RGNT AUTO W/O MICROSCOP Y US PREG 11022 O'OSWALDO O'OSWALDO UTERUS 4 FRANK FRANK AFTER 1ST TRIMEST GESTATION URNLS DIP 40963 XIMENA BUENO 3 VERONICA VERONICA STICK/TAB LET RGNT AUTO W/O MICROSCOP Y INFUSION J7030 [facility] NORMAL 3 N N SALINE [facility] SOLUTION HOSPITA HOSPITA [address] [place] [address] [facility] LIPASE 3 N N [facility] HOSPITA HOSPITA COMPREHEN 53879 [facility] SIVE 3 N N METABOLIC [facility] [place] [address] [facility] INFUSION 3 N N HYDRATION [facility] INITIAL HOSPITA HOSPITA 31 MIN-1 [place] [address] [facility] INFUSION 3 N N HYDRATION [facility] EACH HOSPITA HOSPITA ADDITIONA L HOUR COLLECTIO 02297 [facility] N VENOUS 3 N N BLOOD [facility] VENIPUNCT HOSPITA HOSPITA URE BLOOD 79232 [facility] COUNT 3 N N COMPLETE COMMUNITY COMMUNITY AUTO&AUTO [place] [address] [place] ABDOMINAL 3 MOON REAL TIME W/IMAGE LIMITED URNLS DIP 61071 CAMRYNKatharine COWANSILVERPEAK 3 N N STICK/TAB COMMUNITY COMMUNITY LET HOSPITA HOSPITA [place] [address] [facility] ESTRIOL 3 DIAGNOSTI DIAGNOSTI CS CS COLLECTIO 61680 [facility] N VENOUS 3 DIAGNOSTI DIAGNOSTI BLOOD CS CS VENIPUNCT URE URNLS DIP 36850 XIMENA BUENO 3 VERONICA VERONICA STICK/TAB LET RGNT AUTO W/O MICROSCOP Y GONADOTRO 84121 [facility] PIN 3 DIAGNOSTI DIAGNOSTI CHORIONIC CS CS QUANTITAT MI ALPHA-FET 14059 [facility] OPROTEIN 3 DIAGNOSTI DIAGNOSTI SERUM CS CS INHIBIN A 94194 [facility] QUEST 3 DIAGNOSTI DIAGNOSTI CS CS URNLS DIP 39889 XIMENA BUENO 3 VERONICA VERONICA STICK/TAB LET RGNT AUTO W/O MICROSCOP Y URNLS DIP 43436 XIMENA BUENO 3 VERONICA VERONICA STICK/TAB LET RGNT AUTO W/O MICROSCOP Y US PREG 27461 XIMENA BUENO UTERUS 3 VERONICA VERONICA REAL TIME W/IMAGE DCMTN TRANSVAG URINE 28049 [facility] [address] [place] [address] CENTER CENTER COLOR CMPRSN METHS Encounters Encounter Start End Date Code Location Performer Type Date HOSPITAL [facility] - 7 7 [facility] T [facility] 18155 [facility] T VISIT 5 INC MINUTES [facility]OSP[facility] - 7 7 [facility] OUTPATIEN INC T EMERGENCY 61914 [facility] CONTRERAS 6 6 PHYSICIAN SALVADOR VAZ T VISIT MODERATE SEVERITY HOSPITAL [facility] - 6 6 [facility]PATIEN [facility] T HOSPITAL [facility] - 6 6 [facility] OUTPATIEN INC T HOSPITAL [facility] - 6 6 [facility] OUTPATIEN INC T OFFICE 89022 [facility] CONI OUTPATIEN 6 6 PHYSICIAN BHARATH T NEW 20 S GROUP MINUTES OFFICE 10041 JAY JAY BARFIELD OUTPATIEN 6 6 PAULINA T NEW 30 PEDIATRIC MINUTES S & INTER OFFICE 93148 SHUN BUENO OUTPATIEN 6 6 MEDICAL VERONICA T VISIT SERV 10 FOUNDATIO MINUTES N PERIODIC 76894 SHUN BUENO PREVENTIV 5 5 MEDICAL VERONICA E MED EST SERV PATIENT FOUNDATIO 18-39 YRS N EMERGENCY 25580 SOKAN BAB SOKAN BAB 5 5 DEPARTMEN T VISIT MODERATE SEVERITY HOSPITAL [facility] - 5 5 [facility] OUTPATIEN INC T OFFICE 20608 JOSE LUIS [place] JOSE LUIS OUTPATIEN 5 5 MD Aguirre 45 CONSULTIN MINUTES G SERV EMERGENCY 27705 VIKY SALMON, 5 5 JR NAHEED FARFAN DEPARTMEN T VISIT HIGH/URGE NT SEVERITY HOSPITAL [facility] - 4 4 N INPATIENT COMMUNITY HOSPITA OFFICE 41020 XIMENA BUENO OUTPATIEN 4 4 VERONICA VERONICA T VISIT 15 MINUTES OFFICE 80814 XIMENA BUENO OUTPATIEN 4 4 VERONICA VERONICA T VISIT 15 MINUTES OFFICE 85878 XIMENA BUENO OUTPATIEN 4 4 VERONICA VERONICA T VISIT 15 MINUTES OFFICE 16801 JOSH MORENO OUTPATIEN 4 4 POLE FRAMER POLE FRAMER T VISIT 15 MINUTES OFFICE 36176 XIMENA BUENO OUTPATIEN 4 4 VERONICA VERONICA T VISIT 15 MINUTES OFFICE 80896 XIMENA BUENO OUTPATIEN 4 4 VERONICA VERONICA T VISIT 15 MINUTES OFFICE 51799 XIMENA BUENO OUTPATIEN 4 4 VERONICA VERONICA T VISIT 15 MINUTES OFFICE 39125 XIMENA BUENO OUTPATIEN 4 4 VERONICA VERONICA T VISIT 15 MINUTES OFFICE 48732 BUENO BUENO OUTPATIEN 4 4 VERONICA VERONICA T VISIT 15 MINUTES OFFICE 98270 XIMENA BUENO OUTPATIEN 4 4 VERONICA VERONICA T VISIT 15 MINUTES OFFICE 89468 XIMENA BUENO OUTPATIEN 4 4 VERONICA VERONICA T VISIT 15 MINUTES OFFICE 96443 XIMENA BUENO OUTPATIEN 4 4 VERONICA VERONICA T VISIT 15 MINUTES OFFICE 75762 XIMENA BUENO OUTPATIEN 3 3 VERONICA VERONICA T VISIT 15 MINUTES EMERGENCY 16858 LUKE LUKE DEPT 3 3 RYA RYA VISIT HIGH SEVERITY& THREAT [facility] - 3 3 N OUTPATIEN COMMUNITY T HOSPITA EMERGENCY 20980 [facility] 3 3 N DEPARTMEN COMMUNITY T VISIT HOSPITA HIGH/URGE NT SEVERITY OFFICE 46582 XIMENA BUENO OUTPATIEN 3 3 VERONICA VERONICA T VISIT 15 MINUTES OFFICE 34091 XIMENA BUENO OUTPATIEN 3 3 VERONICA VERONICA T VISIT 15 MINUTES OFFICE 38383 XIMENA BUENO OUTPATIEN 3 3 VERONICA VERONICA T NEW 30 MINUTES OFFICE 38991 [facility] OUTPATIEN [address]
--- OUTSIDE RECORDS SUMMARY | 2017-04-27 16:39 | External Medical Summary Rpt ---
Demographics Preferred Language Irish Marital Status Unknown Jainism Affiliation Unknown Race Unknown Ethnic Group Unknown Author Author JUSTINE Address Unknown Phone Immunization Unable to retrieve immunization data due to connection failure with Immunization Registry. Please try again later.
--- OUTSIDE RECORDS SUMMARY | 2017-04-27 16:39 | External Medical Summary Rpt ---
Demographics Preferred Language Frisian Marital Status Unknown Bahai Affiliation Unknown Race Unknown Ethnic Group Unknown Author Author JUSTINE Address Unknown Phone Immunization Unable to retrieve immunization data due to connection failure with Immunization Registry. Please try again later.
== END 2017-04-24 15:41 | disposition home or self-care (01) ==
LOC: UTC 14:56
DX: S90.812A Abrasion, left foot, initial encounter (principal); W22.8XXA Striking against or struck by other objects, initial encounter; Y92.009 Unspecified place in unspecified non-institutional (private) residence as the place of occurrence of the external cause; Z23 Encounter for immunization